=== PATIENT | male | born 1950 ===

== ENCOUNTER 2021-09-26 05:51 | Observation (INO) ==
[2021-09-26] MEDS ORDERED: Lactated Ringers 1000 ml BAG 1,000 ML IV SCH (06:00)
[2021-09-26] MEDS ORDERED: Buffered Lidocaine 1% SYRIN 1 ml INTRADERM ONE (06:00)
[2021-09-26] MEDS ORDERED: Famotidine IV 10 MG/ML 2 ml VIAL (20 mg) IV ONE (06:00)
[2021-09-26] MEDS ORDERED: ceFAZolin 2 GM PREMIX 2 GM/50 ML BAG ONE (06:08)
[2021-09-26] MEDS ORDERED: Famotidine IV 10 MG/ML 2 ml VIAL (20 mg) ONE (06:08)
[2021-09-26] MEDS ORDERED: Midazolam 2 mg/2 ml VIAL 1 mg/ml 2 ml VIAL (2 mg) ONE (06:44)
[2021-09-26] MEDS ORDERED: fentaNYL 100 mcg/2 ml 50 MCG/ML VIAL ONE (06:44)
[2021-09-26] MEDS ORDERED: Lidocaine 2% PF 5 ML VIAL ONE (06:45)
[2021-09-26 07:07] LABS: Calcium 9.1 mg/dL (8.6-10.3); eGFR CKD-EPI 80.5 (>60)
[2021-09-26] MEDS ORDERED: ROPIVACAINE 5 MG/ML 30 ML BTL (0.5%) ONE (07:11)
[2021-09-26] MEDS ORDERED: Vancomycin 1,000 MG VIAL ONE (07:17)
[2021-09-26] MEDS ORDERED: Lidocaine 1% w EPI 1:200,000 SDV 30 ML VIAL ONE (07:18)
[2021-09-26] MEDS ORDERED: Bupivacaine 0.5% 50 ML MDV VIAL ONE (07:18)
[2021-09-26] MEDS ORDERED: Naloxone 0.4 mg VIAL 0.4 mg/ml 1 ml VIAL IV PRN (08:03)
[2021-09-26] MEDS ORDERED: Morphine 4 MG/ML VIAL (1 ml) IV PRN (08:03)
[2021-09-26] MEDS ORDERED: fentaNYL 100 mcg/2 ml 50 MCG/ML VIAL IV PRN (08:03)
[2021-09-26] MEDS ORDERED: Prochlorperazine 5 mg/ml 2 ml VIAL (10 mg) IV PRN (08:03)
[2021-09-26] MEDS ORDERED: Phenylephrine IV 10 MG/ML 1 ml VIAL ONE (08:18)
[2021-09-26] MEDS ORDERED: EPHEDrine (Pressors) 50 MG/ML VIAL ONE (08:23)
[2021-09-26] MEDS ORDERED: Ondansetron 4 mg VIAL 2 MG/ML 2 ml VIAL IV PRN (10:12)
[2021-09-26] MEDS ORDERED: Magnesium Hydroxide LIQ 30 ML UDC PO PRN (10:12)
[2021-09-26] MEDS ORDERED: Morphine 2 MG/ML SYRINGE IV PRN (10:12)
[2021-09-26] MEDS ORDERED: Lactulose 30 ml UDC PO PRN (10:12)
[2021-09-26] MEDS ORDERED: Ondansetron ODT 4 mg TAB 4 MG TAB PO PRN (10:12)
[2021-09-26] MEDS ORDERED: Dextrose 50% Syringe 50 ml 25 GM/50 ML SYRINGE IV PUSH PRN (10:22)
[2021-09-26] MEDS ORDERED: D5W 1/2 NS 1000 ml BAG 1,000 ML IV SCH (11:00)
[2021-09-26 12:09] LABS: Hepatitis B Surface Antigen Nonreactive (Nonreactive)
[2021-09-26] MEDS ORDERED: Lactated Ringers 1000 ml BAG 1,000 ML IV ONE (12:12)
[2021-09-26 12:27] LABS: Hepatitis C Antibody Negative (Negative)
[2021-09-26 12:54] LABS: HIV 4th Generation Nonreactive (Nonreactive)
[2021-09-26] MEDS ORDERED: ceFAZolin 1 GM ADVAN 1 GM in NS 0.9% 50 ML 50 ML IVPB SCH (16:00)
[2021-09-26] MEDS: ceFAZolin VIAL 1 GM in NS 0.9% 50 ML 50 ML IVPB SCH ×2 (16:20→23:44)
[2021-09-26] MEDS: Magnesium Hydroxide LIQ 30 ML UDC PO SCH (20:18)
[2021-09-26] MEDS: RED YEAST RICE 600 MG PO SCH (20:26)
[2021-09-27 05:02] LABS: Hematocrit 32 % (42-52); Hemoglobin 10.7 g/dL (14.0-18.0); Mean Platelet Volume 8.4 fL (7.4-10.4); Platelet Count 213 10^3/uL (150-450)
[2021-09-27 05:45] LABS: Calcium 8.8 mg/dL (8.6-10.3); eGFR CKD-EPI 74.3 (>60)
[2021-09-27 05:49] LABS: Potassium 5.1 mmol/L (3.5-5.0)
[2021-09-27] MEDS: Magnesium Hydroxide LIQ 30 ML UDC PO SCH ×2 (08:15→20:55)
[2021-09-27] MEDS: Vitamin THERAPEUTIC TAB PO SCH (08:17)
[2021-09-27] MEDS: RED YEAST RICE 600 MG PO SCH ×2 (08:23→22:43)
[2021-09-27] MEDS: ceFAZolin VIAL 1 GM in NS 0.9% 50 ML 50 ML IVPB SCH (08:34)
[2021-09-27] MEDS ORDERED: Iodixanol (CONTRAST) 320 MG/ML 100 ML SDV IV ONE (17:52)
[2021-09-28 06:13] LABS: Hematocrit 27 % (42-52); Mean Platelet Volume 8.4 fL (7.4-10.4); Platelet Count 183 10^3/uL (150-450)
[2021-09-28 06:25] LABS: Calcium 8.6 mg/dL (8.6-10.3)
[2021-09-28 06:31] LABS: eGFR CKD-EPI 54.9 (>60)
[2021-09-28 06:35] LABS: Potassium 5.2 mmol/L (3.5-5.0)
[2021-09-28 07:47] VITALS: BP 104/68
[2021-09-28] MEDS: Magnesium Hydroxide LIQ 30 ML UDC PO SCH (08:53)
[2021-09-28] MEDS: Vitamin THERAPEUTIC TAB PO SCH (08:54)
[2021-09-28] MEDS: RED YEAST RICE 600 MG PO SCH (08:57)
[2021-09-28] MEDS ORDERED: Furosemide 40 mg/4 ml IV VIAL IV SLOW PU ONE (11:59)
== END 2021-09-28 16:05 | disposition home or self-care (01) ==
LOC: OR 05:51 → SSU 05:51
PROVIDERS: ADMIT Orthopaedic Surgery; ATTEND Orthopaedic Surgery

== ENCOUNTER 2023-11-06 05:39 | Observation (INO) ==
[~2023-11-06 05:39] MED LIST: Naloxone 0.4 mg VIAL 0.4 mg/ml 1 ml VIAL IV PRN; Ondansetron 4 mg VIAL 2 MG/ML 2 ml VIAL IV PRN; fentaNYL 100 mcg/2 ml 50 MCG/ML VIAL IV PRN
[2023-11-06] MEDS ORDERED: ceFAZolin 2 GM PREMIX 2 GM/50 ML BAG ONE (06:14)
[2023-11-06 06:31] LABS: Rapid COVID-19 Molecular Undetected (Undetected)
[2023-11-06] MEDS: Lactated Ringers 1000 ml BAG 1,000 ML IV SCH ×2 (06:44→12:49)
[2023-11-06] MEDS: Buffered Lidocaine 1% SYRIN 1 ml INTRADERM ONE (06:44)
[2023-11-06] MEDS ORDERED: Propofol 10 MG/ML 20 ML BTL ONE ×2 (06:52→09:00)
[2023-11-06] MEDS ORDERED: Lidocaine 2% PF 5 ML VIAL ONE (06:52)
[2023-11-06] MEDS ORDERED: Midazolam 2 mg/2 ml VIAL 1 mg/ml 2 ml VIAL (2 mg) ONE (07:01)
[2023-11-06] MEDS ORDERED: Bupivacaine 0.25% SDV 30 ML ONE (07:06)
[2023-11-06] MEDS ORDERED: Tranexamic Acid 1 GM/100ML BAG 2,000 MG/200 ML BAG IV ONE (07:17)
[2023-11-06] MEDS ORDERED: fentaNYL 100 mcg/2 ml 50 MCG/ML VIAL ONE ×2 (07:37→09:32)
[2023-11-06] MEDS ORDERED: Phenylephrine 40 mcg/mL 10mL (400mcg) SYRINGE ONE (08:12)
[2023-11-06] MEDS ORDERED: Phenylephrine IV 10 MG/ML 1 ml VIAL ONE (08:16)
[2023-11-06] MEDS ORDERED: KETAMINE HCL 10 MG/ML 20 ml VIAL (200 MG) ONE (09:08)
[2023-11-06] MEDS ORDERED: Lactulose 30 ml UDC PO PRN (11:03)
[2023-11-06] MEDS ORDERED: Ondansetron 4 mg VIAL 2 MG/ML 2 ml VIAL IV PRN (11:03)
[2023-11-06] MEDS ORDERED: Magnesium Hydroxide LIQ 30 ML UDC PO PRN (11:03)
[2023-11-06] MEDS ORDERED: Morphine 2 MG/ML SYRINGE IV PRN (11:03)
[2023-11-06] MEDS ORDERED: Calcium Carb (TUMS) 500 mg CHEW TAB PO PRN (11:03)
[2023-11-06] MEDS ORDERED: Ondansetron ODT 4 mg TAB 4 MG TAB PO PRN (11:03)
[2023-11-06] MEDS ORDERED: Dextrose 50% Syringe 50 ml 25 GM/50 ML SYRINGE IV PUSH PRN (11:53)
[2023-11-06] MEDS: BUPIVACAINE **LIPOSOME/PF 13.3 MG/ML (266MG/ 20ML) VIAL (RESTRICTED) INFIL ONE (12:35)
[2023-11-06] MEDS: ceFAZolin 2 GM in NS PREMIX 2 GM/100 ML BAG IVPB SCH (12:56)
[2023-11-06] MEDS: ceFAZolin 2 GM PREMIX 2 GM/50 ML BAG IVPB SCH (16:34)
[2023-11-06] MEDS: Magnesium Hydroxide LIQ 30 ML UDC PO SCH (21:02)
[2023-11-06] MEDS: CMCS: Fenofibrate 145 mg TAB (NF) PO SCH (21:03)
[2023-11-07 07:00] LABS: Hematocrit 34.1 % (38-53); Hemoglobin 11.3 g/dL (13.2-16.3); Mean Platelet Volume 9.7 fL (7.5-11.2); Platelet Count 215 10^3/uL (150-450)
[2023-11-07 07:19] LABS: Creatinine, Serum 1.13 mg/dL (0.67-1.17); Potassium 4.6 mmol/L (3.5-5.0); eGFR CKD-EPI 69.5 (>60)
[2023-11-07] MEDS: Vitamin THERAPEUTIC TAB PO SCH (08:16)
[2023-11-07 09:59] VITALS: BP 130/65
== END 2023-11-07 13:40 | disposition home or self-care (01) ==
LOC: OR 05:39 → SSU 05:39
PROVIDERS: ADMIT Orthopaedic Surgery Sports Medicine; ATTEND Orthopaedic Surgery Sports Medicine